=== PATIENT | female | born 1970 | race Caucasian/White ===

== ENCOUNTER 2017-11-03 06:35 | Inpatient (IN) | payer OTHER ==
[2017-10-22 10:01] LABS: HEMATOCRIT 38.7 % (37.0-47.0); HEMOGLOBIN 12.5 gm/dL (12.0-15.0); MCH 26.6 pg (26.0-34.0); MCHC 32.3 g/dL (28.0-37.0); MCV 82.4 fL (80.0-100.0); MPV 9.2 fl. (7.2-11.1); RBC 4.7 mil/uL (4.20-5.00); RDW-CV 16.2 % (10.5-14.5)
[2017-10-22 10:03] LABS: URINE BILIRUBIN NEGATIVE (Negative); URINE BLOOD NEGATIVE (Negative); URINE CLARITY CLEAR; URINE COLOR YELLOW; URINE GLUCOSE-RANDOM NEGATIVE (Negative); URINE KETONES NEGATIVE (Negative); URINE LEUKOCYTES-REFLEX NEGATIVE (Negative); URINE NITRITE-REFLEX NEGATIVE (Negative); URINE PROTEIN NEGATIVE (Negative); URINE SPECIFIC GRAVITY <= 1.005 (1.005-1.030); URINE UROBILINOGEN 0.2 E.U./dl (0.2-1.0)
[2017-10-22 10:07] LABS: ALBUMIN 3.5 g/dL (3.4-5.0); CREATININE 0.8 mg/dL (0.6-1.3); POTASSIUM 4.1 mmol/L (3.5-5.1); TOTAL BILIRUBIN 0.3 mg/dL (<0.1-1.0)
[2017-10-22 10:17] LABS: PROTIME 9.8 Seconds (9.20-11.50)
--- NOTE | 2017-10-22 11:30 | EKG ---
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
[~2017-11-03] VITALS: Ht 162.6 cm; Wt 137.4 kg
[~2017-11-03 06:35] MED LIST: ALAWAY10 ML TOP; ALL DAY ALLERGY10 M3 PO; ALLER-EASE180 MG PO; ASPIRIN325 PO; ATIVAN1 MG PO; BUTALB-ACETAMI1 EACH PO; CENTRUM SILVER1 EAC4 PO; CLONIDINE0.1 PO; CYMBALTA60 MG PO; FLONASE 0.05%50 MCG NASAL; HYDROCODON-ACE1 EAC7 PO; LISINOPRIL20 MG PO; METHOTREXA1 GM/40 M1 PO; METHOTREXATE 22.5 MG PO; SKELAXIN 800 M800 M1 PO; STARLIX60 MG PO; TOPAMAX 100 MG100 MG PO; TOPAMAX50 MG PO; TOPROL XL25 MG PO; TOUJEO SOL300 UNIT/1 SUBQ; TRULICITY0.75 MG/0. SUBQ; ULTRAM 50MG TAB50 MG PO; VISTARIL 25 MG25 M1 PO
[2017-11-03 07:54] VITALS: BP 148/60
--- NOTE | 2017-11-03 11:56 | NUR ---
RECIEVED O.T. ORDER. WILL DEFER TO P.T. AND NURSING AT THIS TIME. PLEASE ORDER FURTHER O.T. SERVICES IF NEEDED.
--- NOTE | 2017-11-03 12:55 | NUR ---
ASSUMED CARE OF PATIENT AFTER TRANSFER FROM PACU AT 1245. ALERT AND ORIENTED X4, REMAINS SLEEPY FROM SURGERY BUT EASILY ROUSED. ASSESSMENT COMPLETED AND CHARTED. VSS ON 2 LITERS 02. PATIENT ORIENTED TO ROOM. CALL LIGHT IS WITHIN REACH. NURSING WILL CONTINUE TO MONITOR.
[2017-11-03 12:58] VITALS: BP 130/78
[2017-11-03 16:00] VITALS: BP 125/84
--- NOTE | 2017-11-03 16:26 | NUR ---
PATIENT REMAINS ALERT AND ORIENTED X4. NO COMPLAINTS OF NAUSEA. PAIN IS BEING MANAGED WITH PAIN MEDICATION. PATIENT IS DOING MUCH BETTER SINCE COMINE OVER FROM PACU. RESPIRATIONS AND ALERTNESS HAVE INCREASED. RESPIRATORY ASKED TO ASSIST PATIENT IN PREPARING HER CPAP FOR THIS EVENINGS USE. A BLLOD GAS WAS ORDERED STAT IN PACU AROUND NOON, RESPIRATORY JUST INFORMED ME AT 1615 THAT NO ONE HAS CALLED THEM ABOUT DOING IT. DR STEWART WAS CALLED AND SHE CONFORMED THAT SHE STILL WANTED IT DONE AND ASKED THAT AN INCIDENT REPORT BE FILED ABOUT IT NOT BEING DONE STAT ORDERED. PACU WAS NOTIFIED TO DO AN INCIDENT REPORT SINCE THE ORDER WAS GIVEN TO THEM AND THE PATIENT WAS NOT TRANSFERED TO THIS NURSE UNTIL 1345. FLUIDS INFUSING ORDERED. HOURLY ROUNDS HAVE BEEN MAINTAINED. CALL LIGHT IS WITHIN REACH. NURSING WILL CONTINUE TO MONITOR.
[2017-11-03 19:06] LABS: BE -3.1 mmol/L (-2 to +3); HCO3 22.7 mmol/L (22.0-26.0); PCO2 43.9 mmHg (35.0-45.0); PO2 102.9 mmHg (75.0-100.0); pH 7.332 (7.340-7.450)
[2017-11-03 20:00] VITALS: BP 124/61
[2017-11-03 23:33] VITALS: BP 134/80
[2017-11-04 04:09] VITALS: BP 125/74
[2017-11-04 04:18] LABS: HEMOGLOBIN 11.1 gm/dL (12.0-15.0)
[2017-11-04 06:35] LABS: BE -1.1 mmol/L (-2 to +3); HCO3 25.1 mmol/L (22.0-26.0); PCO2 48.3 mmHg (35.0-45.0); PO2 89.1 mmHg (75.0-100.0); pH 7.334 (7.340-7.450)
--- NOTE | 2017-11-04 06:37 | NUR ---
ASSUMED CARE OF PT AT 1900 PT ALERT AND ORIENTED X4 VS AND ASSESSMENT STABLE POLAR PACK IN PLACE OVER SURGICAL DRSG POSITIVE CMS CHECKS TO RLE. PAIN MEDS PRN WILL CONTINUE PLAN OF CARE.
[2017-11-04 07:56] VITALS: BP 95/58
[2017-11-04] MEDS ORDERED: XARELTO10 MG PO (15:15)
[2017-11-04] MEDS ORDERED: OXYCODONE HCL5 M1 PO (15:22)
[2017-11-04 16:16] VITALS: BP 95/58
--- NOTE | 2017-11-04 16:19 | NUR ---
CM ASSESSMENT: Pt is A&O. Resides at home with her 2 children, Pt's mom lives below her. Pt is normally independent with ADLs, continues to work FT outside of the home. Pt had a left DJD approx 4 years ago. Pt has a walker and stool riser at home. No hx of SNF. Pt discharging to home today and wants to use [facility]. Faxed dc orders to . Pt's family to transport and they are on their way to pick her up. Pt's physical address is: [address] [place] [id number].
[2017-11-04 16:30] VITALS: BP 95/58
--- NOTE | 2017-11-04 16:33 | NUR ---
CALLED IN PRESCRIPTION WRITTEN TO [facility] OBTAINED PRIOR AUTH FOR XARELJORGE FROM [employer]. CALLED PHARMACY BACK AND COPAY IS $35.
[2017-11-04] MEDS ORDERED: XANAX 0.25 MG0.25 MG PO (16:39)
[2017-11-04] MEDS ORDERED: BUPROPION XL300 MG PO (16:40)
[2017-11-04] MEDS ORDERED: FLEXERIL PO (16:41)
[2017-11-04] MEDS ORDERED: FOLIC ACID0.4 MG PO (16:42)
[2017-11-04] MEDS ORDERED: INDOMETHACIN SR75 M1 PO (16:42)
[2017-11-04] MEDS ORDERED: Trazodone PO (16:43)
[2017-11-04] MEDS ORDERED: ULTRA FLORA PL1 EACH PO (16:43)
[2017-11-04 17:20] VITALS: BP 95/58
--- NOTE | 2017-11-04 17:25 | NUR ---
ASSUMED CARE OF PATIENT AFTER MORNING REPORT. ALERT AND ORIENTED X4. ASSESSMENT COMPLETED AND CHARTED. VSS ON 2 LITERS 02. PATIENT HAD NO COMPLAINTS OF NAUSEA THIS SHIFT. PAIN HAS BEEN MANAGED WITH PAIN MEDICATION. PATIENT TITRATED OFF OF 02 AND VSS REMAINED DTABLE ON ROOM AIR. PATIENT WORKED WELL WITH THERAPY TODAY. PATIENT DISCHARGED AT 1720 WITH FAMILY. ALL PERSONAL BELONGINGS LEFT WITH PATIENT. PRESCRIPTIONS AND DISCHARGE INFORMATION SENT WITH PATIENT UPON DISCHARGE.
--- NOTE | 2017-11-05 13:21 | S ---
[address] [address] SURGICAL PATH RPT PROCEDURE Name: ARMANDO BENDER Room: [address] M.R.#: [id number] Admission: 11/03/17 Date of : 68 Discharge: 11/04/17 Report #: [id number] Path Case #: [id number] PATHOLOGY REPORT COLLECTION DATE: 11/03/2017 RECEIVED DATE: 11/03/2017 SUBMITTING PHYS: Dr. Gilberto Howell II OTHER PHYS: Dr. Fady Montenegro SPECIMEN(S) RECEIVED: A.R knee bone and tissue * * * * * * * * * * * * FINAL DIAGNOSIS: Right knee bone and tissue, unicompartmental knee replacement: - Benign synovium with chondroid metaplasia, benign meniscus and fibrovascular/fibrofatty connective tissue, and benign bone and cartilage with degenerative changes. (HEIDY:; 11/05/2017) PATHOLOGIST: Tone Cash M.D. REPORT ELECTRONICALLY SIGNED BY: Tone Cash M.D. DATE/TIME: 11/05/2017 13:20 * * * * * * * * * * * * GROSS PATHOLOGY: Received in formalin labeled "Armando Bender, right knee bone and tissue," are multiple irregular segments of granular, pale alexis bone admixed with soft tissue and meniscus measuring 5.2 x 3.8 x 1.6 cm in aggregate dimensions. Articular surface cannot be identified grossly. Pneumatic Tube Operator sections of bone and soft tissue are submitted in cassette A1, following decalcification. A gross photograph is taken. ([facility]; 11/04/2017) CLINICAL HISTORY: Pre-op diagnosis: Right knee internal derangement, right knee DJD Post-op diagnosis: Osteoarthritis, right knee pain INITIAL CPT CODE(S): A; 80395, 97903 Professional services performed by [facility] at [facility], [address] [place] [address]. Technical services performed by [facility] at [address] [place] [address], [facility] [address] [address]. [place] [address] SURGICAL PATH RPT PROCEDURE Name: ARMANDO BENDER Room: [address] ..#: [id number] Admission: 11/03/17 Date of : 68 Discharge: 11/04/17 Report #: [id number] Path Case #: [id number] [facility] [address] [place] [address] PHONE: [phone] DIRECTOR: Carlton Kapadia M.D. * * * END OF REPORT * * *
--- NOTE | 2017-11-10 11:42 | OP ---
[address] [address] OPERATIVE REPORT Name: VIVEK STEPHENS Room: [address] IN .R#: [id number] Admission: 11/03/17 Attend Phys: Gisel Hodges Discharge: 11/04/17 Date of : 68 Report #: [id number] THIS REPORT FOR: //name// CC: Fady Montenegro DATE OF SERVICE: 11/03/2017 PREOPERATIVE DIAGNOSIS: Right knee medial osteoarthritis. POSTOPERATIVE DIAGNOSIS: Right knee medial osteoarthritis. PROCEDURE: Right unicompartmental knee replacement with Navio. SURGEON: Gilberto Martines II, DO. SUPERINTENDENT MEASUREMENT: GINA Holden. ANESTHESIA: General endotracheal. ESTIMATED BLOOD LOSS: 50 mL. ANTIBIOTICS: Ancef preoperatively. DRAINS: Medium Hemovac. COMPLICATIONS: None. DISPOSITION: Stable to recovery room. IMPLANTS: Listed in the operative record and progress note. BRIEF HISTORY: The patient was seen in the preoperative area. Preop H and P was performed. Site was marked, questions were answered. Risks and benefits were discussed with the patient in detail about surgery. The patient wished to proceed and assumed all risks. OPERATIVE PROCEDURE: The patient was taken to the operative suite, placed supine on the operating table and given appropriate anesthesia. A well-padded tourniquet was applied to the upper thigh, was inflated to 300 mmHg of after gravity exsanguination. The operative knee was sterilely prepped and draped. Surgery began by an incision over the medial portion of the knee. This was carried out through the subcutaneous tissues. A medial parapatellar arthrotomy was performed down to the medial joint. The patella was subluxed laterally and evaluation of the lateral compartment was performed as well as patellofemoral [address] [address] OPERATIVE REPORT Name: VIVEK STEPHENS Room: [address]#: [id number] Admission: 11/03/17 Attend Phys: Gisel Hodges Discharge: 11/04/17 Date of : 68 Report #: [id number] region showing no evidence of chondromalacia. ACL was intact. The medial side did have grade 4 chondromalacia with arthritis and spur formation. These were removed utilizing a rongeur around the entirety of the femur. Utilizing the Navio trackers, these were then placed on to the bone and the knee was registered in appropriate fashion. Bur was then utilized to bur the femur and tibia in appropriate fashion. Excess bone was then irrigated out to remove as well as any excess meniscus in the region. This was then trialed with trial femur and tibia in place and taken range of motion, checked with robotic assistance to be in excellent alignment. These trials were then removed. The finals were selected. Cement was mixed and applied to the implant as well as the bone. They were then malleted into position and held with the knee in extension to allow cure. After extra cement was removed using Felton and osteotome, a final trial was once again performed and the final polyethylene was then placed. Knee was once again taken through range of motion with excellent flexion, extension, and excellent range of motion of the knee. Copious irrigation was then performed. The capsule was then closed utilizing 2 FiberWire and #1 Vicryl in lieyii-nq-yadtd fashion. Tourniquet was deflated and pain cocktail was injected. PRP was sprayed throughout the internal aspects of the knee. No drain was utilized. The skin was then closed with 2-0 Vicryl and running 3-0 Monocryl with Dermabond and sterile dressing applied and the pin sites were closed with nylon. The patient was transferred to recovery in stable condition. Counts were correct throughout the procedure. <ELECTRONICALLY SIGNED> By: Gilberto Howell II, DO 11/10/17 1142 0817 [id number] Howell II, DO /nt
== END 2017-11-04 17:20 | disposition home health service (06) | DRG 470 ==
LOC: M.PRE 06:35 → M.TBA 07:07 → M.ORTHSURG 07:07 → M.PRE 07:54 → M.ORTHSURG 12:43 → M.PRE 13:01 → M.ORTHSURG 11-04 17:20
PROVIDERS: Internal Medicine; Orthopaedic Surgery; ADMIT Internal Medicine
PROC: 0SRC0J9 Replacement of Right Knee Joint with Synthetic Substitute, Cemented, Open Approach (ICD-10-PCS; principal; 2017-11-03)
DX: M17.11 Unilateral primary osteoarthritis, right knee (principal); Z68.43 Body mass index [BMI] 50.0-59.9, adult; G97.82 Other postprocedural complications and disorders of nervous system; E11.9 Type 2 diabetes mellitus without complications; E66.9 Obesity, unspecified; F41.9 Anxiety disorder, unspecified; Z96.652 Presence of left artificial knee joint; F32.9 Major depressive disorder, single episode, unspecified; G47.33 Obstructive sleep apnea (adult) (pediatric); G43.909 Migraine, unspecified, not intractable, without status migrainosus; I10 Essential (primary) hypertension; E78.5 Hyperlipidemia, unspecified; Z90.89 Acquired absence of other organs; Z86.73 Personal history of transient ischemic attack (TIA), and cerebral infarction without residual deficits; Z79.899 Other long term (current) drug therapy; Z79.82 Long term (current) use of aspirin; Z79.4 Long term (current) use of insulin; R41.82 Altered mental status, unspecified

== ENCOUNTER 2018-05-29 18:23 | Emergency (ER) | payer OTHER ==
[~2018-05-29] VITALS: Ht 162.6 cm; Wt 137.0 kg
[~2018-05-29 18:23] MED LIST changes: +BUPROPION XL300 MG PO; +FLEXERIL PO; +FOLIC ACID0.4 MG PO; +INDOMETHACIN SR75 M1 PO; +OXYCODONE HCL5 M1 PO; +Trazodone PO; +ULTRA FLORA PL1 EACH PO; +XANAX 0.25 MG0.25 MG PO; +XARELTO10 MG PO
[2018-05-29] MEDS ORDERED: WELLBUTRIN 100100 MG PO (18:37)
[2018-05-29] MEDS ORDERED: CYMBALTA60 MG PO (18:37)
[2018-05-29] MEDS ORDERED: NALTREXONE HCL50 MG PO (18:38)
[2018-05-29] MEDS ORDERED: METFORMIN HCL500 MG PO (18:38)
[2018-05-29] MEDS ORDERED: TOPAMAX50 MG PO (18:38)
[2018-05-29] MEDS ORDERED: REQUIP1 MG PO (18:38)
[2018-05-29] MEDS ORDERED: CYMBALTA20 MG PO (18:39)
[2018-05-29] MEDS ORDERED: ONDANSETRON HCL4 M2 PO (18:39)
[2018-05-29] MEDS ORDERED: CLONAZEPAM 0.50.5 M1 PO (18:39)
[2018-05-29] MEDS ORDERED: TRULICITY0.75 MG/0. (18:39)
[2018-05-29 19:35] LABS: ABSOLUTE BASOPHILS 0.1 thou/uL (0.0-0.2); ABSOLUTE EOSINOPHILS 0.3 thou/uL (0.0-0.7); ABSOLUTE LYMPHOCYTES 2.8 thou/uL (0.8-5.3); ABSOLUTE MONOCYTES 0.8 thou/uL (0.0-1.2); ABSOLUTE NEUTROPHILS 6.6 thou/uL (1.6-8.1); BASOPHILS 0.6 %; EOSINOPHILS 2.5 %; HEMATOCRIT 35.6 % (37.0-47.0); HEMOGLOBIN 11.3 gm/dL (12.0-15.0); LYMPHOCYTES 26.9 %; MCH 26.3 pg (26.0-34.0); MCHC 31.9 g/dL (28.0-37.0); MCV 82.7 fL (80.0-100.0); MONOCYTES 7.2 %; MPV 8.8 fl. (7.2-11.1); NUCLEATED RBCS 0 /100WBC; PLATELET COUNT* 301 thou/uL (150-400); POLYS 62.8 %; RDW-CV 15.9 % (10.5-14.5); WBC 10.5 thou/uL (4.0-11.0)
[2018-05-29 19:39] LABS: CALCIUM 8.7 mg/dL (8.5-10.1); POTASSIUM 3.5 mmol/L (3.5-5.1)
[2018-05-29 19:50] LABS: ALBUMIN 3.1 g/dL (3.4-5.0); TOTAL BILIRUBIN 0.3 mg/dL (<0.1-1.0); TOTAL PROTEIN 7.4 g/dL (6.4-8.2)
[2018-05-29 22:52] VITALS: BP 134/77
== END 2018-05-29 22:53 | disposition home or self-care (01) ==
LOC: M.ERS 18:23
PROVIDERS: Nurse Practitioner Family
DX: R60.0 Localized edema (principal); F41.9 Anxiety disorder, unspecified; E11.9 Type 2 diabetes mellitus without complications; E66.9 Obesity, unspecified; Z68.43 Body mass index [BMI] 50.0-59.9, adult; Z88.5 Allergy status to narcotic agent; Z88.6 Allergy status to analgesic agent; Z90.710 Acquired absence of both cervix and uterus

== ENCOUNTER → 2021-09-02 | Outpatient (CLI) | payer OTHER, MEDICAID ==
[~2021-09-02] MED LIST changes: +CLONAZEPAM 0.50.5 M1 PO; +CYMBALTA20 MG PO; +METFORMIN HCL500 MG PO; +NALTREXONE HCL50 MG PO; +ONDANSETRON HCL4 M2 PO; +REQUIP1 MG PO; +TRULICITY0.75 MG/0.; +WELLBUTRIN 100100 MG PO; +ZOFRAN ODT4 MG PO
== END ==
LOC: M.LAB 11:15
PROVIDERS: ATTEND Internal Medicine Gastroenterology
DX: Z01.812 Encounter for preprocedural laboratory examination (principal); Z20.822 Contact with and (suspected) exposure to COVID-19

== ENCOUNTER 2021-09-03 10:07 | Emergency (ER) | payer OTHER, MEDICAID ==
[~2021-09-03] VITALS: Ht 162.6 cm; Wt 127.0 kg
[~2021-09-03 10:07] MED LIST changes: -ZOFRAN ODT4 MG PO
[2021-09-03 11:01] LABS: INFLUENZA A ANTIGEN Negative (Negative); INFLUENZA B ANTIGEN Negative (Negative)
[2021-09-03 12:18] LABS: ABSOLUTE BASOPHILS 0.1 thou/uL (0.0-0.2); ABSOLUTE EOSINOPHILS 0.1 thou/uL (0.0-0.7); ABSOLUTE LYMPHOCYTES 2.3 thou/uL (0.8-5.3); ABSOLUTE MONOCYTES 0.7 thou/uL (0.0-1.2); ABSOLUTE NEUTROPHILS 7.1 thou/uL (1.6-8.1); BASOPHILS 0.6 %; HEMATOCRIT 36.8 % (37.0-47.0); LYMPHOCYTES 22.5 %; MCH 26.6 pg (26.0-34.0); MCHC 32.6 g/dL (28.0-37.0); MCV 81.7 fL (80.0-100.0); MONOCYTES 7.2 %; MPV 8.6 fl. (7.2-11.1); NUCLEATED RBCS 0 /100WBC; PLATELET COUNT* 304 thou/uL (150-400); POLYS 68.7 %; RBC 4.51 mil/uL (4.20-5.00); WBC 10.4 thou/uL (4.0-11.0)
[2021-09-03 12:28] LABS: CALCIUM 8.7 mg/dL (8.5-10.1); CREATININE 0.9 mg/dL (0.6-1.3); POTASSIUM 3.5 mmol/L (3.5-5.1)
[2021-09-03 12:32] LABS: ALBUMIN 3.1 g/dL (3.4-5.0); TOTAL BILIRUBIN 0.6 mg/dL (<0.1-1.0); TOTAL PROTEIN 7.5 g/dL (6.4-8.2)
--- NOTE | 2021-09-03 12:57 | EKG ---
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: [facility] : 1970 Requested By: Kaye Aldana Order Number: [id number] MD: Reji Walden Measurements Intervals [place] Rate: 73 P: 30 MS: 148 QRS: 3 QRSD: 95 T: 0 QT: 389 QTc: 429 Interpretive Statements Sinus rhythm Low voltage, precordial leads Compared to ECG 10/22/2017 09:37:19 Low QRS voltage now present Electronically Signed On 09-03-2021 12:57:07 INSPECTOR [employer]IC by Reji Walden [email or web address] <ELECTRONICALLY SIGNED> By: Reji Walden MD, FACC 09/03/21 1257 1127 1127 Reji Walden MD, [facility] /EPI
[2021-09-03 13:16] LABS: URINE BILIRUBIN NEGATIVE (Negative); URINE BLOOD NEGATIVE (Negative); URINE CLARITY CLEAR; URINE COLOR YELLOW; URINE GLUCOSE-RANDOM NEGATIVE (Negative); URINE KETONES NEGATIVE (Negative); URINE LEUKOCYTES-REFLEX NEGATIVE (Negative); URINE NITRITE-REFLEX NEGATIVE (Negative); URINE PROTEIN NEGATIVE (Negative); URINE SPECIFIC GRAVITY 1.015 (1.005-1.030); URINE UROBILINOGEN 0.2 E.U./dl (0.2-1.0)
[2021-09-03] MEDS ORDERED: HYDROCODON-ACE1 EAC7 PO (14:49)
[2021-09-03] MEDS ORDERED: ZOFRAN ODT4 MG PO (14:54)
[2021-09-03 15:46] VITALS: BP 110/69
== END 2021-09-03 15:49 | disposition home or self-care (01) ==
LOC: M.ERS 10:07
PROVIDERS: Nurse Practitioner Family
DX: K76.0 Fatty (change of) liver, not elsewhere classified (principal); Z20.822 Contact with and (suspected) exposure to COVID-19; K80.20 Calculus of gallbladder without cholecystitis without obstruction; E11.9 Type 2 diabetes mellitus without complications; E66.9 Obesity, unspecified; Z88.6 Allergy status to analgesic agent; Z88.5 Allergy status to narcotic agent; Z79.82 Long term (current) use of aspirin; Z79.899 Other long term (current) drug therapy; Z98.890 Other specified postprocedural states